=== PATIENT | female | born 1985 | race Caucasian/White ===

== ENCOUNTER 2016-09-14 17:28 | Emergency (ER) | payer MEDICAID ==
--- NOTE | 2016-10-11 21:25 | ER ---
ADMIT: 09/14/2016 RM/LOC: ER [facility] MR#: [id number] [address] [id number] EMMA PEREZN [address] [place] [address] Emergency Room Report SEX: F AGE: 31 : 1985 DATE: 09/14/2016 HISTORY OF PRESENT ILLNESS: A 31-year-old presents to emergency room, complaining of vaginal bleeding, she says started last night, concerned because she has had 11 miscarriage and she has 3 live . She is nine weeks . She says she was travelling to [facility] in 2 weeks and her doctor had been monitoring her and she wanted to know if she is okay with this because of the bleeding. PHYSICAL EXAMINATION: VITAL SIGNS: Vitals within normal limits. GENERAL: Mildly anxious. PELVIC: She is actively bleeding, very mildly. The cervix is closed. She has had ultrasounds done in the past, which she does have a she knows she has an intrauterine . On the wet mount, we got positive clue cells and she has been treated with clindamycin as metronidazole is not indicated for 1st trimester. IMPRESSION: Vaginosis. The patient was given a script for clindamycin. She has an appointment with Dr. Yates on Thursday, so advised to continue her medication, increase fluids, and follow up with Dr. Yates as per her scheduled appointment. BRITTON Alberto / Braden Khalil MD / ruddyl JOB #: [id number] CC: Vikas Romo MD, Attending Physician Sebastián Yates, Family Physician
== END 2016-09-14 20:10 | disposition home or self-care (01) ==
LOC: ER 17:28
DX: O23.591 Infection of other part of genital tract in pregnancy, first trimester (principal); Z3A.09 9 weeks gestation of pregnancy; Z90.89 Acquired absence of other organs